=== PATIENT | male | born 1960 | race Caucasian/White ===

== ENCOUNTER 2018-07-01 23:45 | Emergency (ER) | payer MEDICARE, MEDICAID ==
[~2018-07-01] VITALS: Ht 177.8 cm; Wt 116.2 kg
[~2018-07-01 23:45] MED LIST: ALBU18HF2 IH; AMIT50TA3 PO; ASPI-1009 PO; BAC10T PO; CLA10T PO; CLIN300C85 PO; CLOP75TA35 PO; DOCU-274 PO; DULO-31 PO; FENO145T38 PO; FLUC200T PO; FLUT16SP2 NS; IPRA3AMP19 IH; LEVO50TA59 PO; METF500T7 PO; METO10TA3 PO; OMEP-84 PO; PENT400T12 PO; PER10325T PO; PROM25TA14 PO; SIMV20TA5 PO; THEO400T PO; TRAM50TA2 PO; ZAFI20TA13 PO; ZES10T PO
[2018-07-02 00:32] LABS: CLARITY,URINE CLEAR (Clear); COLOR,URINE YELLOW (Yellow); GLUCOSE, URINE NEGATIVE (Neg); KETONES,URINE NEGATIVE (Neg); LEUKOCYTE ESTERASE ,URINE NEGATIVE (Neg); NITRITES, URINE NEGATIVE (Neg); OCCULT BLOOD,URINE NEGATIVE (Neg); PROTEIN,URINE NEGATIVE (Neg); UROBILINOGEN,URINE 0.2 E.U/dL (0.2-1.0)
[2018-07-02 00:33] LABS: UA COLLECTION TYPE NON-SPECIFIED
[2018-07-02 01:17] VITALS: BP 131/77
== END 2018-07-02 01:19 | disposition home or self-care (01) ==
LOC: ER 23:46
DX: M54.5 Low back pain (principal); I25.10 Atherosclerotic heart disease of native coronary artery without angina pectoris; K21.9 Gastro-esophageal reflux disease without esophagitis; J44.9 Chronic obstructive pulmonary disease, unspecified; E11.9 Type 2 diabetes mellitus without complications; E03.9 Hypothyroidism, unspecified; E78.00 Pure hypercholesterolemia, unspecified; G89.29 Other chronic pain; Z88.1 Allergy status to other antibiotic agents; Z88.8 Allergy status to other drugs, medicaments and biological substances; Z79.82 Long term (current) use of aspirin; Z79.84 Long term (current) use of oral hypoglycemic drugs; Z79.2 Long term (current) use of antibiotics; Z79.899 Other long term (current) drug therapy
CPT/HCPCS: 81003; 99283

== ENCOUNTER 2018-10-31 20:26 | Emergency (ER) | payer MEDICARE, MEDICAID ==
[~2018-10-31] VITALS: Ht 177.8 cm; Wt 113.6 kg
[~2018-10-31 20:26] MED LIST changes: +CLIN-96 PO; -CLIN300C85 PO
[2018-10-31 20:28] VITALS: BP 150/90
--- NOTE | 2018-10-31 22:20 | NUR ---
PATIENT NOT IN ROOM
== END 2018-10-31 22:26 | disposition left against medical advice (07) ==
LOC: ER 20:27
DX: J00 Acute nasopharyngitis [common cold] (principal); R05 Cough; R09.89 Other specified symptoms and signs involving the circulatory and respiratory systems; Z53.21 Procedure and treatment not carried out due to patient leaving prior to being seen by health care provider

== ENCOUNTER 2020-01-22 01:32 | Emergency (ER) | payer MEDICARE, MEDICAID ==
[~2020-01-22] VITALS: Ht 177.8 cm; Wt 118.2 kg
[~2020-01-22 01:32] MED LIST changes: -CLIN-96 PO; +CLIN-97 PO; +METF-900 PO; -METF500T7 PO; -PENT400T12 PO; +PENT400T17 PO; +SIMV-42 PO; -SIMV20TA5 PO
[2020-01-22 01:34] VITALS: BP 146/118
[2020-01-22] MEDS ORDERED: METH-360 PO (01:47)
== END 2020-01-22 01:54 | disposition home or self-care (01) ==
LOC: ER 01:34
DX: M54.5 Low back pain (principal); G89.29 Other chronic pain; I25.10 Atherosclerotic heart disease of native coronary artery without angina pectoris; E78.00 Pure hypercholesterolemia, unspecified; J44.9 Chronic obstructive pulmonary disease, unspecified; K21.9 Gastro-esophageal reflux disease without esophagitis; E11.9 Type 2 diabetes mellitus without complications; E03.9 Hypothyroidism, unspecified; Z98.890 Other specified postprocedural states; Z88.1 Allergy status to other antibiotic agents; Z88.0 Allergy status to penicillin; Z91.048 Other nonmedicinal substance allergy status; Z79.82 Long term (current) use of aspirin; Z79.899 Other long term (current) drug therapy
CPT/HCPCS: 99284

== ENCOUNTER 2020-03-22 18:15 | Emergency (ER) | payer MEDICARE, MEDICAID ==
[~2020-03-22] VITALS: Ht 177.8 cm; Wt 118.8 kg
[~2020-03-22 18:15] MED LIST changes: +METH-360 PO
[2020-03-22 19:42] VITALS: BP 135/96
[2020-03-22] MEDS ORDERED: HYDROcodone/acetaminophen 5mg/325mg tablet PO ONE (20:30)
== END 2020-03-22 20:38 | disposition home or self-care (01) ==
LOC: ER 18:15
DX: G89.29 Other chronic pain (principal); Z76.0 Encounter for issue of repeat prescription; I25.10 Atherosclerotic heart disease of native coronary artery without angina pectoris; E78.00 Pure hypercholesterolemia, unspecified; J44.9 Chronic obstructive pulmonary disease, unspecified; K21.9 Gastro-esophageal reflux disease without esophagitis; E11.9 Type 2 diabetes mellitus without complications; E03.9 Hypothyroidism, unspecified; Z90.89 Acquired absence of other organs; Z98.890 Other specified postprocedural states; Z87.11 Personal history of peptic ulcer disease; Z79.899 Other long term (current) drug therapy; Z79.82 Long term (current) use of aspirin; Z88.1 Allergy status to other antibiotic agents; Z88.8 Allergy status to other drugs, medicaments and biological substances
CPT/HCPCS: 99283

== ENCOUNTER → 2020-03-30 | Emergency (ER) | payer MEDICARE, MEDICAID ==
[~2020-03-30] VITALS: Ht 185.4 cm; Wt 120.0 kg
[~2020-03-30] MED LIST changes: +FENTANYL-0.9 % NACL/PF 100 ML IV PRN; +LIDOcaine 2% 10ml TOPICAL JELLY (Urojet) TP ONE; +LORazepam 2 mg/ml vial IV ONE; +LORazepam 2 mg/ml vial ONE; +LevETIRAcetam 500 MG in NORMAL SALINE 100ml IV.SOLN IV ONE; +NORepinephrine 8 MG in NS 250 ML BAG (32 mcg/ml) IV ONE; +NORepinephrine 8mg/ 250ml NS 250 ML IV SCH; +VANCOMYCIN 1,500MG inj. 1,500 MG in normal saline 500ml IV soln 300 ML IV SCH; +VANCOMYCIN LEVEL IV ONE; +etomidate 2mg/ml inj. IV ONE; +etomidate 2mg/ml inj. ONE; +magnesium 2GM in 50ml NS 50 ML IV ONE; +magnesium 4gm in 100ml NS 100 ML IV ONE; +midazolam 100mg in NS 100ml 100 ML IV PRN; +normal saline 1000ml 1,000 ML IV ONE; +normal saline 1000ml 1,000 ML IVB ONE; +piperacillin/tazo 4.5gm/100ml 100 ML IV SCH; +propofol 1000mg/100ml bottle 100 ML IV ONE; +propofol 1000mg/100ml bottle 100 ML IV SCH; +succinylcholine 20mg/ml inj IV ONE
[2020-03-30 19:44] LABS: HEMOGLOBIN 13.4 g/dl (14.0-17.9)
[2020-03-30 19:46] LABS: BASOPHILS # (AUTO) 0.1 X10'3 (0-0.2); BASOPHILS % (AUTO) 0.9 % (0-1); EOSINOPHILS # (AUTO) 0.5 X10'3 (0-0.9); EOSINOPHILS % (AUTO) 3.1 % (0-6); HEMATOCRIT 40.9 % (42.0-52.0); LYMPHOCYTES # (AUTO) 2.3 X10'3 (1.1-4.8); LYMPHOCYTES % (AUTO) 13.2 % (21-51); MEAN CORPUSCULAR HEMOGLOBIN 29.6 PG (27.0-31.0); MEAN CORPUSCULAR HGB CONC 32.9 g/dL (33.0-36.5); MEAN CORPUSCULAR VOLUME 90.1 FL (78-98); MEAN PLATELET VOLUME 7.4 FL (7.4-10.4); MONOCYTES # (AUTO) 0.8 X10'3 (0-0.9); MONOCYTES % (AUTO) 4.6 % (2-12); NEUTROPHILS # (AUTO) 13.5 X10'3 (1.8-7.7); NEUTROPHILS % (AUTO) 78.2 % (42-75); PLATELET COUNT 649 X10'3 (140-440); RED BLOOD COUNT 4.54 X10'6 (4.70-6.10); RED CELL DISTRIBUTION WIDTH 13.9 % (11.5-14.5); WHITE BLOOD COUNT 17.3 X10'3 (4.5-11.0)
[2020-03-30 19:56] LABS: CLARITY,URINE CLEAR (Clear); COLOR,URINE YELLOW (Yellow); GLUCOSE, URINE NEGATIVE (Neg); KETONES,URINE NEGATIVE (Neg); LEUKOCYTE ESTERASE ,URINE NEGATIVE (Neg); NITRITES, URINE NEGATIVE (Neg); OCCULT BLOOD,URINE NEGATIVE (Neg); PH,URINE 6.5 (4.8-8.0); PROTEIN,URINE 100 mg/dl (Neg); UROBILINOGEN,URINE 0.2 E.U/dL (0.2-1.0)
[2020-03-30 19:59] LABS: UA COLLECTION TYPE STRAIGHT CATH
[2020-03-30] MEDS: levetiracetam-NS 1000mg/100ml 100 ML IV SCH (20:00)
[2020-03-30 20:01] LABS: BACTERIA,URINE NONE SEEN /HPF (Neg); RBC,URINE NONE SEEN /HPF (0-2); SQUAMOUS EPITHELIAL CELL,UR FEW /LPF (FEW); WBC,URINE 0-4 /HPF (0-4)
[2020-03-30 20:02] LABS: ALANINE AMINOTRANSFERASE 10 U/L (12-78); ALBUMIN 3.5 G/DL (3.4-5.0); ALBUMIN/GLOBULIN RATIO 0.9 (1.1-1.5); ALKALINE PHOSPHATASE 40 IU/L (46-116); ANION GAP 19 (8-16); ASPARTATE AMINO TRANSFERASE 15 U/L (10-37); BILIRUBIN,TOTAL 0.2 MG/DL (0.1-1.0); BLOOD UREA NITROGEN 7 MG/DL (7-18); BUN/CREATININE RATIO 4.4 (5.4-32.0); CALCIUM 8.2 MG/DL (8.5-10.1); CHLORIDE 100 MMOL/L (99-107); GLUCOSE 235 MG/DL (70-104); POTASSIUM 3.6 MMOL/L (3.5-5.1); SODIUM 136 MMOL/L (135-145); TOTAL PROTEIN 7.3 G/DL (6.4-8.2); eGFR 44 ML/MIN
[2020-03-30 20:08] LABS: MAGNESIUM 0.8 MG/DL (1.5-2.4)
--- NOTE | 2020-03-30 20:12 | NUR ---
LA 9.7, MG 0.7, AWARE. SHE WILL ORDER MG REPLACEMENT AND ADTL 1 LITER NS BOLUS.
--- NOTE | 2020-03-30 22:00 | NUR ---
PATIENT WAS AT CT WHEN SEIZURES STARTED WHEELED PATIENT TO ED BED AT BEDSIDE, ADMINISTERED ATIVAN
--- NOTE | 2020-03-30 22:40 | NUR ---
DR. HERNANDES VERBALIZED THAT WE WILL INTUBATE DUE TO PATIENT NEEDING AIRWAY PROTECTION 10 MG TOTAL ADMINISTERED PRIOR TO DR. HERNANDES DISICION TO INTUBATE
--- NOTE | 2020-03-30 23:00 | NUR ---
SOFT RESTRAINT ORDER IN AND APPLIED TO UPPER EXTREMITIES TO PREVENT PULLING LINES
[2020-03-30 23:30] LABS: ABG BASE EXCESS -6.3 mmol/L (-2.0-2.0); ABG HCO3 20.5 mmol/L (22.0-26.0); ABG OXYGEN SATURATION 96.5 % (94-97); ABG PCO2 (T) 45.6 mmHg (35.0-48.0); ABG PO2 (T) 104.3 mmHg (75.0-100.0); ALLEN'S TEST POSITIVE; FCOHb 0.3 % (0.0-3.9); FMetHb 0.2 % (0.0-1.5); PATIENT TEMPERATURE 36.9; PEEP 5 cm H2O; RESPIRATORY RATE 16 b/min; TOTAL HEMOGLOBIN 13.3 G/dl (14.0-18.0)
[2020-03-31] MEDS: levetiracetam-NS 1000mg/100ml 100 ML IV SCH ×3 (00:35→02:44)
--- NOTE | 2020-03-31 01:00 | NUR ---
RELEASED SOFT RESTRAINTS CSM INTACT REAPPLIED
--- NOTE | 2020-03-31 01:18 | NUR ---
PT GETTING SPINAL TAP NOW BY DR. JONES.
--- NOTE | 2020-03-31 01:46 | NUR ---
UNSUCCESFUL AT SPINAL TAP. [facility] DENIS CONTINUING TO TRY TO TRANSFER PT.
[2020-03-31] MEDS: vancomycin/NS 1 GM ADD-VANTAGE 500 ML IV SCH ×2 (02:45→03:43)
[2020-03-31 02:58] LABS: ALBUMIN 3.1 G/DL (3.4-5.0); ANION GAP 10 (8-16); BLOOD UREA NITROGEN 8 MG/DL (7-18); BUN/CREATININE RATIO 6.1 (5.4-32.0); CALCIUM 7.5 MG/DL (8.5-10.1); CHLORIDE 105 MMOL/L (99-107); CREATININE 1.32 MG/DL (0.60-1.10); GLUCOSE 136 MG/DL (70-104); POTASSIUM 3.5 MMOL/L (3.5-5.1); SODIUM 136 MMOL/L (135-145); TOTAL CARBON DIOXIDE 21.1 MMOL/L (24-32); eGFR 56 ML/MIN
--- NOTE | 2020-03-31 03:00 | NUR ---
SOFT RESTRAINTS RELEASED CSM INTACT REAPPLIED
[2020-03-31] MEDS: LevETIRAcetam 1500 MG in NORMAL SALINE 100ml bag IV SCH ×2 (03:16→03:44)
[2020-03-31 03:36] LABS: URINE AMPHETAMINE SCREEN NEGATIVE (Neg); URINE BARBITUATE SCREEN NEGATIVE (Neg); URINE BENZODIAZEPINES SCREEN NEGATIVE (Neg); URINE CANNABINOID SCREEN NEGATIVE (Neg); URINE COCAINE SCREEN NEGATIVE (Neg); URINE METHADONE SCREEN NEGATIVE (Neg); URINE OPIATE SCREEN NEGATIVE (Neg); URINE PHENCYCLIDINE SCREEN NEGATIVE (Neg)
--- NOTE | 2020-03-31 05:00 | NUR ---
RELEASED SOFT RESTRAINTS CSM INTACT RE APPLIED
[2020-03-31 07:25] LABS: ABG BASE EXCESS -6.4 mmol/L (-2.0-2.0); ABG HCO3 18.5 mmol/L (22.0-26.0); ABG OXYGEN SATURATION 98.4 % (94-97); ALLEN'S TEST POSITIVE; FCOHb 0.6 % (0.0-3.9); FMetHb 0.1 % (0.0-1.5); FO2Hb 97.7 % (94-97); PEEP 5 cm H2O; RESPIRATORY RATE 18 b/min; TOTAL HEMOGLOBIN 13.2 G/dl (14.0-18.0)
--- NOTE | 2020-03-31 08:00 | NUR ---
REPORT CALLED TO TREV SOTOMAYOR AT [facility]. SBAR AND ALL QUESTIONS ANSWERED. TRANSPORT WILL BE HERE AT 0930.
--- NOTE | 2020-03-31 09:47 | NUR ---
FLIGHT CREW AT BEDSIDE PREPARING FOR TRANSPORT TO [facility]. REPORT GIVEN AND ASSISTED WITH PREPARING FOR TRANSFER.
[2020-03-31 11:22] VITALS: BP 143/88
== END | disposition home or self-care (01) ==
LOC: ER 19:14
DX: G40.901 Epilepsy, unspecified, not intractable, with status epilepticus (principal); R57.9 Shock, unspecified; R41.82 Altered mental status, unspecified; E66.9 Obesity, unspecified; I25.10 Atherosclerotic heart disease of native coronary artery without angina pectoris; E78.00 Pure hypercholesterolemia, unspecified; J44.9 Chronic obstructive pulmonary disease, unspecified; K21.9 Gastro-esophageal reflux disease without esophagitis; E11.9 Type 2 diabetes mellitus without complications; E03.9 Hypothyroidism, unspecified; G89.29 Other chronic pain; Z98.890 Other specified postprocedural states; Z87.11 Personal history of peptic ulcer disease; Z86.73 Personal history of transient ischemic attack (TIA), and cerebral infarction without residual deficits; Z79.82 Long term (current) use of aspirin; Z79.899 Other long term (current) drug therapy; Z88.1 Allergy status to other antibiotic agents; Z88.8 Allergy status to other drugs, medicaments and biological substances; Z91.041 Radiographic dye allergy status
CPT/HCPCS: 31500; 36415; 36556; 36600; 62270; 70450; 71045; 80048; 80053; 80305; 81001; 82803; 82948; 83605; 83735; 84145; 85018; 85025; 85610; 87040; 87635; 93005; 96361; 96365; 96366; 96375; 99291; 99292; C9803; J0330; J1953; J2060; J2704; J3475; J7030; 94760; 96367; 96368; 96376; 99285; J2543; J3010; J3370

== ENCOUNTER 2020-05-06 20:29 | Emergency (ER) | payer MEDICARE, MEDICAID ==
[~2020-05-06] VITALS: Ht 177.8 cm; Wt 119.1 kg
[~2020-05-06 20:29] MED LIST changes: -FENTANYL-0.9 % NACL/PF 100 ML IV PRN; -LIDOcaine 2% 10ml TOPICAL JELLY (Urojet) TP ONE; -LORazepam 2 mg/ml vial IV ONE; -LORazepam 2 mg/ml vial ONE; -LevETIRAcetam 500 MG in NORMAL SALINE 100ml IV.SOLN IV ONE; -NORepinephrine 8 MG in NS 250 ML BAG (32 mcg/ml) IV ONE; -NORepinephrine 8mg/ 250ml NS 250 ML IV SCH; -VANCOMYCIN 1,500MG inj. 1,500 MG in normal saline 500ml IV soln 300 ML IV SCH; -VANCOMYCIN LEVEL IV ONE; -etomidate 2mg/ml inj. IV ONE; -etomidate 2mg/ml inj. ONE; -magnesium 2GM in 50ml NS 50 ML IV ONE; -magnesium 4gm in 100ml NS 100 ML IV ONE; -midazolam 100mg in NS 100ml 100 ML IV PRN; -normal saline 1000ml 1,000 ML IV ONE; -normal saline 1000ml 1,000 ML IVB ONE; -piperacillin/tazo 4.5gm/100ml 100 ML IV SCH; -propofol 1000mg/100ml bottle 100 ML IV ONE; -propofol 1000mg/100ml bottle 100 ML IV SCH; -succinylcholine 20mg/ml inj IV ONE
[2020-05-06 21:30] LABS: BASOPHILS # (AUTO) 0.1 X10'3 (0-0.2); BASOPHILS % (AUTO) 1.1 % (0-1); EOSINOPHILS # (AUTO) 0.5 X10'3 (0-0.9); EOSINOPHILS % (AUTO) 4.1 % (0-6); HEMATOCRIT 42.8 % (42.0-52.0); HEMOGLOBIN 14.1 g/dl (14.0-17.9); LYMPHOCYTES # (AUTO) 2.7 X10'3 (1.1-4.8); LYMPHOCYTES % (AUTO) 21.4 % (21-51); MEAN CORPUSCULAR HEMOGLOBIN 29.3 PG (27.0-31.0); MEAN CORPUSCULAR VOLUME 88.7 FL (78-98); MEAN PLATELET VOLUME 7.3 FL (7.4-10.4); MONOCYTES # (AUTO) 0.8 X10'3 (0-0.9); MONOCYTES % (AUTO) 6.2 % (2-12); NEUTROPHILS # (AUTO) 8.5 X10'3 (1.8-7.7); NEUTROPHILS % (AUTO) 67.2 % (42-75); PLATELET COUNT 517 X10'3 (140-440); RED BLOOD COUNT 4.82 X10'6 (4.70-6.10); RED CELL DISTRIBUTION WIDTH 14.1 % (11.5-14.5); WHITE BLOOD COUNT 12.7 X10'3 (4.5-11.0)
--- NOTE | 2020-05-06 21:54 | NUR ---
HE HAS A CYST ON HIS COCCYX THAT HE SAYS HURTS, BUT IT ALWAYS HURTS. DEALING WITH IT SINCE 1971. I ASKED TO LOOK AT IT, BUT HE WON'T LET ME. HE SAID THERE IS NOTHING TO SEE. HE SAID IT IS NOT HOT, NOT NO DIFFERENT THAN BEFORE.
[2020-05-06 22:34] LABS: ALANINE AMINOTRANSFERASE 16 U/L (12-78); ALBUMIN 3.6 G/DL (3.4-5.0); ALBUMIN/GLOBULIN RATIO 0.9 (1.1-1.5); ALKALINE PHOSPHATASE 44 IU/L (46-116); ANION GAP 11 (8-16); ASPARTATE AMINO TRANSFERASE 13 U/L (10-37); BILIRUBIN,TOTAL 0.2 MG/DL (0.1-1.0); BLOOD UREA NITROGEN 7 MG/DL (7-18); BUN/CREATININE RATIO 5.3 (5.4-32.0); CALCIUM 8.6 MG/DL (8.5-10.1); CHLORIDE 100 MMOL/L (99-107); CREATININE 1.32 MG/DL (0.60-1.10); GLUCOSE 147 MG/DL (70-104); POTASSIUM 3.2 MMOL/L (3.5-5.1); SODIUM 137 MMOL/L (135-145); TOTAL CARBON DIOXIDE 26.1 MMOL/L (24-32); TOTAL PROTEIN 7.4 G/DL (6.4-8.2); eGFR 56 ML/MIN
[2020-05-06 22:48] LABS: TROPONIN I < 0.04 NG/ML (0.0-0.05)
[2020-05-06 23:43] LABS: D-DIMER 0.34 MG/L FEU (0-0.50)
--- NOTE | 2020-05-07 00:06 | NUR ---
HE DENIES DRINKING ALCOHOL AND DENIES ANY DRUG USE FOR THE REASONS HIS HR COULD BE ELVATED. hIS LEFT HAND IS TREMULOUS NOW. HE SAID HIS HAND IS TREMULOUS R/T PAIN FROM HIS CHRONIC BACK PAIN.
[2020-05-07 00:12] LABS: CLARITY,URINE CLEAR (Clear); COLOR,URINE YELLOW (Yellow); GLUCOSE, URINE NEGATIVE (Neg); KETONES,URINE NEGATIVE (Neg); LEUKOCYTE ESTERASE ,URINE NEGATIVE (Neg); NITRITES, URINE NEGATIVE (Neg); OCCULT BLOOD,URINE NEGATIVE (Neg); PROTEIN,URINE TRACE mg/dl (Neg); UROBILINOGEN,URINE 0.2 E.U/dL (0.2-1.0)
[2020-05-07 00:17] LABS: BACTERIA,URINE NONE SEEN /HPF (Neg); RBC,URINE NONE SEEN /HPF (0-2); SQUAMOUS EPITHELIAL CELL,UR FEW /LPF (FEW); UA COLLECTION TYPE OTHER; WBC,URINE NONE SEEN /HPF (0-4)
[2020-05-07] MEDS ORDERED: potassium Cl 20 mEq SR tablet PO STA (00:24)
[2020-05-07] MEDS ORDERED: normal saline 1000ml 1,000 ML IV ONE (00:25)
[2020-05-07] MEDS ORDERED: magnesium oxide 400mg tablet PO ONE (00:25)
[2020-05-07] MEDS ORDERED: oxyCODONE/APAP 5-325mg tablet PO ONE (00:25)
[2020-05-07 01:52] VITALS: BP 159/102
== END 2020-05-07 01:55 | disposition home or self-care (01) ==
LOC: ER 20:29
DX: R07.89 Other chest pain (principal); R00.0 Tachycardia, unspecified; R05 Cough; I25.10 Atherosclerotic heart disease of native coronary artery without angina pectoris; E78.00 Pure hypercholesterolemia, unspecified; J44.9 Chronic obstructive pulmonary disease, unspecified; K21.9 Gastro-esophageal reflux disease without esophagitis; E11.9 Type 2 diabetes mellitus without complications; E03.9 Hypothyroidism, unspecified; G89.29 Other chronic pain; Z98.890 Other specified postprocedural states; Z79.2 Long term (current) use of antibiotics; Z88.8 Allergy status to other drugs, medicaments and biological substances; Z79.82 Long term (current) use of aspirin; Z79.899 Other long term (current) drug therapy
CPT/HCPCS: 36415; 71045; 80053; 81001; 83605; 83880; 84145; 84443; 84484; 85025; 85379; 87040; 87635; 93005; 96360; 99285; C9803; J7030; 81003

== ENCOUNTER 2021-09-03 18:35 | Emergency (ER) | payer MEDICARE, MEDICAID ==
[~2021-09-03] VITALS: Ht 177.8 cm; Wt 115.9 kg
[~2021-09-03 18:35] MED LIST changes: -AMIT50TA3 PO; +ATOR20TA PO; -CLIN-97 PO; +CLOP75TA34 PO; -CLOP75TA35 PO; -FLUC200T PO; +HYDR-3927 PO; +LEVA0.6319 NEB; +LEVE10002 PO; +LISI20TA28 PO; -METH-360 PO; -METO10TA3 PO; -PROM25TA14 PO; -SIMV-42 PO; -TRAM50TA2 PO; -ZES10T PO
[2021-09-03 18:46] VITALS: BP 129/84
== END 2021-09-03 20:13 | disposition left against medical advice (07) ==
LOC: ER 18:37
DX: K13.79 Other lesions of oral mucosa (principal); K08.89 Other specified disorders of teeth and supporting structures; Z53.21 Procedure and treatment not carried out due to patient leaving prior to being seen by health care provider

== ENCOUNTER 2021-09-28 21:29 | Emergency (ER) | payer MEDICARE, MEDICAID ==
[~2021-09-28] VITALS: Ht 177.8 cm; Wt 114.8 kg
[2021-09-28] MEDS ORDERED: MINE105O TOP (23:06)
[2021-09-29 00:37] VITALS: BP 134/84
== END 2021-09-29 00:39 | disposition home or self-care (01) ==
LOC: ER 21:31
DX: L85.3 Xerosis cutis (principal); L30.9 Dermatitis, unspecified; G89.29 Other chronic pain; E03.9 Hypothyroidism, unspecified; E11.9 Type 2 diabetes mellitus without complications; K21.9 Gastro-esophageal reflux disease without esophagitis; J44.9 Chronic obstructive pulmonary disease, unspecified; I10 Essential (primary) hypertension; E78.00 Pure hypercholesterolemia, unspecified; I25.10 Atherosclerotic heart disease of native coronary artery without angina pectoris; Z98.890 Other specified postprocedural states; Z87.11 Personal history of peptic ulcer disease; Z88.1 Allergy status to other antibiotic agents; Z88.8 Allergy status to other drugs, medicaments and biological substances; Z91.041 Radiographic dye allergy status; Z79.82 Long term (current) use of aspirin; Z79.899 Other long term (current) drug therapy
CPT/HCPCS: 99282

== ENCOUNTER 2021-10-20 03:25 | Emergency (ER) | payer MEDICARE, MEDICAID ==
[~2021-10-20] VITALS: Ht 177.8 cm; Wt 115.5 kg
[~2021-10-20 03:25] MED LIST changes: +MINE105O TOP
[2021-10-20 03:36] VITALS: BP 102/60
== END 2021-10-20 05:08 | disposition home or self-care (01) ==
LOC: ER 03:25
DX: M79.89 Other specified soft tissue disorders (principal); R20.0 Anesthesia of skin; I25.10 Atherosclerotic heart disease of native coronary artery without angina pectoris; E78.00 Pure hypercholesterolemia, unspecified; I10 Essential (primary) hypertension; J44.9 Chronic obstructive pulmonary disease, unspecified; K21.9 Gastro-esophageal reflux disease without esophagitis; E11.9 Type 2 diabetes mellitus without complications; E03.9 Hypothyroidism, unspecified; G89.29 Other chronic pain; Z87.11 Personal history of peptic ulcer disease; Z98.890 Other specified postprocedural states; Z88.1 Allergy status to other antibiotic agents; Z88.8 Allergy status to other drugs, medicaments and biological substances; Z79.82 Long term (current) use of aspirin; Z79.899 Other long term (current) drug therapy
CPT/HCPCS: 73110; 99283; 99284

== ENCOUNTER 2021-12-16 21:42 | Emergency (ER) | payer MEDICARE, MEDICAID ==
[~2021-12-16] VITALS: Ht 177.8 cm; Wt 112.5 kg
[2021-12-16 21:46] VITALS: BP 175/75
== END 2021-12-16 22:47 | disposition home or self-care (01) ==
LOC: ER 21:43
DX: R60.0 Localized edema (principal); I25.10 Atherosclerotic heart disease of native coronary artery without angina pectoris; E78.00 Pure hypercholesterolemia, unspecified; I10 Essential (primary) hypertension; J44.9 Chronic obstructive pulmonary disease, unspecified; K21.9 Gastro-esophageal reflux disease without esophagitis; E11.9 Type 2 diabetes mellitus without complications; E03.9 Hypothyroidism, unspecified; G89.29 Other chronic pain; Z87.11 Personal history of peptic ulcer disease; Z98.890 Other specified postprocedural states; Z88.1 Allergy status to other antibiotic agents; Z88.8 Allergy status to other drugs, medicaments and biological substances; Z79.82 Long term (current) use of aspirin; Z79.899 Other long term (current) drug therapy
CPT/HCPCS: 99282

== ENCOUNTER 2022-03-07 16:18 | Emergency (ER) | payer MEDICARE, MEDICAID ==
[~2022-03-07] VITALS: Ht 177.8 cm; Wt 118.2 kg
[2022-03-07 16:59] VITALS: BP 100/55
[2022-03-07 17:47] LABS: EOSINOPHILS # (AUTO) 0.4 X10'3 (0-0.9)
[2022-03-07 17:49] LABS: BASOPHILS # (AUTO) 0.1 X10'3 (0-0.2); BASOPHILS % (AUTO) 1.1 % (0-1); HEMATOCRIT 40.1 % (42.0-52.0); HEMOGLOBIN 13.5 g/dl (14.0-17.9); LYMPHOCYTES # (AUTO) 2.7 X10'3 (1.1-4.8); LYMPHOCYTES % (AUTO) 19.6 % (21-51); MEAN CORPUSCULAR HEMOGLOBIN 28.4 PG (27.0-31.0); MEAN CORPUSCULAR HGB CONC 33.7 g/dL (33.0-36.5); MEAN CORPUSCULAR VOLUME 84.2 FL (78-98); MEAN PLATELET VOLUME 6.8 FL (7.4-10.4); MONOCYTES # (AUTO) 0.9 X10'3 (0-0.9); MONOCYTES % (AUTO) 6.4 % (2-12); NEUTROPHILS # (AUTO) 9.4 X10'3 (1.8-7.7); NEUTROPHILS % (AUTO) 69.9 % (42-75); PLATELET COUNT 672 X10'3 (140-440); RED BLOOD COUNT 4.76 X10'6 (4.70-6.10); RED CELL DISTRIBUTION WIDTH 15.2 % (11.5-14.5); WHITE BLOOD COUNT 13.5 X10'3 (4.5-11.0)
[2022-03-07 17:57] LABS: ALANINE AMINOTRANSFERASE 18 U/L (12-78); ALBUMIN 3.6 G/DL (3.4-5.0); ALBUMIN/GLOBULIN RATIO 0.9 (1.1-1.5); ALKALINE PHOSPHATASE 65 IU/L (46-116); ANION GAP 9 (8-16); ASPARTATE AMINO TRANSFERASE 12 U/L (10-37); BILIRUBIN,TOTAL 0.2 MG/DL (0.1-1.0); BLOOD UREA NITROGEN 14 MG/DL (7-18); BUN/CREATININE RATIO 12.4 (5.4-32.0); CALCIUM 9.6 MG/DL (8.5-10.1); CHLORIDE 100 MMOL/L (99-107); CREATININE 1.13 MG/DL (0.60-1.10); GLUCOSE 123 MG/DL (70-104); POTASSIUM 4.6 MMOL/L (3.5-5.1); SODIUM 133 MMOL/L (135-145); TOTAL PROTEIN 7.5 G/DL (6.4-8.2); eGFR 66 ML/MIN
[2022-03-10] MEDS ORDERED: BUDE10.27 INH (17:58)
== END 2022-03-08 01:37 | disposition left against medical advice (07) ==
LOC: ER 16:19
DX: R05.9 Cough, unspecified (principal); R07.89 Other chest pain; Z53.21 Procedure and treatment not carried out due to patient leaving prior to being seen by health care provider
CPT/HCPCS: 71046; 80053; 83605; 83880; 85025; 87040

== ENCOUNTER 2022-11-01 01:05 | Emergency (ER) | payer MEDICARE, MEDICAID ==
[~2022-11-01] VITALS: Ht 177.8 cm; Wt 96.2 kg
[~2022-11-01 01:05] MED LIST changes: +BUDE10.27 INH
[2022-11-01 01:34] LABS: CLARITY,URINE CLEAR (Clear); COLOR,URINE YELLOW (Yellow); GLUCOSE, URINE NEGATIVE (Neg); KETONES,URINE NEGATIVE (Neg); LEUKOCYTE ESTERASE ,URINE NEGATIVE (Neg); NITRITES, URINE NEGATIVE (Neg); OCCULT BLOOD,URINE NEGATIVE (Neg); PROTEIN,URINE 30 mg/dl (Neg); UROBILINOGEN,URINE 0.2 E.U/dL (0.2-1.0)
[2022-11-01 01:34] LABS: BASOPHILS # (AUTO) 0.1 X10'3 (0-0.2); BASOPHILS % (AUTO) 0.7 % (0-1); EOSINOPHILS # (AUTO) 0.4 X10'3 (0-0.9); EOSINOPHILS % (AUTO) 2.5 % (0-6); HEMATOCRIT 36.5 % (42.0-52.0); HEMOGLOBIN 12.3 g/dl (14.0-17.9); LYMPHOCYTES # (AUTO) 2.6 X10'3 (1.1-4.8); MEAN CORPUSCULAR HEMOGLOBIN 28.6 PG (27.0-31.0); MEAN CORPUSCULAR HGB CONC 33.7 g/dL (33.0-36.5); MEAN CORPUSCULAR VOLUME 85.1 FL (78-98); MEAN PLATELET VOLUME 6.7 FL (7.4-10.4); MONOCYTES # (AUTO) 1.1 X10'3 (0-0.9); MONOCYTES % (AUTO) 6.4 % (2-12); NEUTROPHILS # (AUTO) 13.1 X10'3 (1.8-7.7); NEUTROPHILS % (AUTO) 75.4 % (42-75); PLATELET COUNT 561 X10'3 (140-440); RED BLOOD COUNT 4.28 X10'6 (4.70-6.10); RED CELL DISTRIBUTION WIDTH 14.7 % (11.5-14.5); WHITE BLOOD COUNT 17.4 X10'3 (4.5-11.0)
[2022-11-01 01:40] LABS: UA COLLECTION TYPE CLN CATCH MIDSTREAM
[2022-11-01 01:42] LABS: BACTERIA,URINE FEW /HPF (Neg); RBC,URINE 0-2 /HPF (0-2); SQUAMOUS EPITHELIAL CELL,UR FEW /LPF (FEW); WBC,URINE 0-4 /HPF (0-4)
[2022-11-01 01:49] LABS: ALANINE AMINOTRANSFERASE 12 U/L (12-78); ALBUMIN 3.7 G/DL (3.4-5.0); ALKALINE PHOSPHATASE 74 IU/L (46-116); ANION GAP 8 (8-16); ASPARTATE AMINO TRANSFERASE 9 U/L (10-37); BILIRUBIN,TOTAL 0.3 MG/DL (0.1-1.0); BLOOD UREA NITROGEN 12 MG/DL (7-18); BUN/CREATININE RATIO 10.3 (5.4-32.0); CALCIUM 9.2 MG/DL (8.5-10.1); CHLORIDE 96 MMOL/L (99-107); CREATININE 1.17 MG/DL (0.60-1.10); GLUCOSE 131 MG/DL (70-104); LIPASE 90 U/L (73-393); POTASSIUM 4.4 MMOL/L (3.5-5.1); SODIUM 131 MMOL/L (135-145); TOTAL CARBON DIOXIDE 27.2 MMOL/L (24-32); TOTAL PROTEIN 7.5 G/DL (6.4-8.2); eGFR 63 ML/MIN
[2022-11-01] MEDS: morphine 4 MG/ML inj SYRINge IV ONE (02:44)
[2022-11-01] MEDS: ondansetron/PF 4mg/2ml inj IV ONE (02:44)
[2022-11-01] MEDS: clindamycin 300mg/D5W 50mL 50 ML IV ONE (02:54)
[2022-11-01] MEDS ORDERED: HYDR-3965 PO (05:28)
[2022-11-01] MEDS ORDERED: METR-159 PO (05:28)
[2022-11-01] MEDS ORDERED: ONDA8TAB13 PO (05:28)
[2022-11-01] MEDS ORDERED: CLIN150C8 PO (05:28)
[2022-11-01 05:33] VITALS: BP 136/72
[2022-11-01] MEDS: metroNIDAZOLE 500mg tablet PO ONE (05:48)
== END 2022-11-01 05:59 | disposition home or self-care (01) ==
LOC: ER 01:06
DX: K52.9 Noninfective gastroenteritis and colitis, unspecified (principal); I11.9 Hypertensive heart disease without heart failure; E78.00 Pure hypercholesterolemia, unspecified; K21.9 Gastro-esophageal reflux disease without esophagitis; E11.9 Type 2 diabetes mellitus without complications; E03.9 Hypothyroidism, unspecified; G89.29 Other chronic pain; M54.9 Dorsalgia, unspecified; Z88.1 Allergy status to other antibiotic agents; Z88.2 Allergy status to sulfonamides; Z88.6 Allergy status to analgesic agent; Z88.8 Allergy status to other drugs, medicaments and biological substances; Z79.899 Other long term (current) drug therapy; Z79.1 Long term (current) use of non-steroidal anti-inflammatories (NSAID); Z79.2 Long term (current) use of antibiotics
CPT/HCPCS: 36415; 74176; 80053; 81001; 83605; 83690; 84145; 85025; 87040; 96365; 96375; 99285; J2270; J2405; J3490

== ENCOUNTER 2022-11-13 21:42 | Emergency (ER) | payer MEDICARE, MEDICAID ==
[~2022-11-13] VITALS: Ht 177.8 cm; Wt 109.1 kg
[~2022-11-13 21:42] MED LIST changes: +CLIN150C8 PO; +HYDR-3965 PO; +ONDA8TAB13 PO
[2022-11-14] MEDS ORDERED: metroNIDAZOLE 500mg tablet PO ONE (00:50)
[2022-11-14] MEDS ORDERED: ondansetron 4mg rapidly disintigrating tab PO ONE (00:50)
[2022-11-14 01:17] LABS: BASOPHILS # (AUTO) 0.1 X10'3 (0-0.2); BASOPHILS % (AUTO) 1.1 % (0-1); EOSINOPHILS # (AUTO) 0.6 X10'3 (0-0.9); EOSINOPHILS % (AUTO) 4.5 % (0-6); HEMOGLOBIN 12.5 g/dl (14.0-17.9); LYMPHOCYTES # (AUTO) 2.3 X10'3 (1.1-4.8); MEAN CORPUSCULAR HEMOGLOBIN 29.1 PG (27.0-31.0); MEAN CORPUSCULAR HGB CONC 34.6 g/dL (33.0-36.5); MEAN CORPUSCULAR VOLUME 84.1 FL (78-98); MEAN PLATELET VOLUME 6.5 FL (7.4-10.4); MONOCYTES # (AUTO) 0.9 X10'3 (0-0.9); MONOCYTES % (AUTO) 6.9 % (2-12); NEUTROPHILS # (AUTO) 9.3 X10'3 (1.8-7.7); NEUTROPHILS % (AUTO) 70.5 % (42-75); PLATELET COUNT 599 X10'3 (140-440); RED BLOOD COUNT 4.28 X10'6 (4.70-6.10); WHITE BLOOD COUNT 13.2 X10'3 (4.5-11.0)
[2022-11-14 01:28] LABS: ALANINE AMINOTRANSFERASE 20 U/L (12-78); ALBUMIN 3.7 G/DL (3.4-5.0); ALBUMIN/GLOBULIN RATIO 1.1 (1.1-1.5); ALKALINE PHOSPHATASE 58 IU/L (46-116); ANION GAP 6 (8-16); ASPARTATE AMINO TRANSFERASE 21 U/L (10-37); BILIRUBIN,TOTAL 0.2 MG/DL (0.1-1.0); BLOOD UREA NITROGEN 11 MG/DL (7-18); BUN/CREATININE RATIO 9.9 (5.4-32.0); CALCIUM 9.1 MG/DL (8.5-10.1); CHLORIDE 97 MMOL/L (99-107); CREATININE 1.11 MG/DL (0.60-1.10); GLUCOSE 112 MG/DL (70-104); LIPASE 157 U/L (73-393); MAGNESIUM 1.7 MG/DL (1.5-2.4); POTASSIUM 4.8 MMOL/L (3.5-5.1); SODIUM 128 MMOL/L (135-145); TOTAL CARBON DIOXIDE 25.4 MMOL/L (24-32); TOTAL PROTEIN 7.2 G/DL (6.4-8.2); eGFR 67 ML/MIN
[2022-11-14] MEDS ORDERED: METR-159 PO (01:58)
[2022-11-14] MEDS ORDERED: CLIN150C8 PO (01:58)
[2022-11-14] MEDS ORDERED: clindamycin 150mg capsule PO ONE (02:00)
[2022-11-14 02:18] VITALS: BP 135/78
== END 2022-11-14 02:19 | disposition home or self-care (01) ==
LOC: ER 21:43
DX: K52.89 Other specified noninfective gastroenteritis and colitis (principal)
CPT/HCPCS: 36415; 80053; 83605; 83690; 83735; 85025; 87040; 99284

== ENCOUNTER 2023-05-21 13:23 | Emergency (ER) | payer MEDICARE, MEDICAID ==
[~2023-05-21] VITALS: Ht 180.3 cm; Wt 63.6 kg
[~2023-05-21 13:23] MED LIST changes: +CLIN-214 PO; -CLIN150C8 PO; -HYDR-3965 PO
[2023-05-21 13:39] VITALS: BP 118/72; PULSE 79; RESP 16; TEMP 98; O2SAT 99
[2023-05-22] MEDS ORDERED: PRED20TA PO (05:22)
[2023-05-22] MEDS ORDERED: HYDR-3965 PO (05:22)
== END 2023-05-21 16:00 | disposition left against medical advice (07) ==
LOC: ER 13:23
DX: R10.9 Unspecified abdominal pain (principal); Z53.21 Procedure and treatment not carried out due to patient leaving prior to being seen by health care provider
CPT/HCPCS: 99281

== ENCOUNTER 2023-05-22 01:14 | Emergency (ER) | payer MEDICARE, MEDICAID ==
[~2023-05-22] VITALS: Ht 177.8 cm; Wt 109.1 kg
[2023-05-22 01:40] VITALS: TEMP 97.7
[2023-05-22 02:22] LABS: BASOPHILS # (AUTO) 0.1 X10'3 (0-0.2); BASOPHILS % (AUTO) 1.3 % (0-1); EOSINOPHILS # (AUTO) 0.6 X10'3 (0-0.9); EOSINOPHILS % (AUTO) 6.3 % (0-6); HEMATOCRIT 35.8 % (42.0-52.0); HEMOGLOBIN 11.7 g/dl (14.0-17.9); LYMPHOCYTES # (AUTO) 1.8 X10'3 (1.1-4.8); LYMPHOCYTES % (AUTO) 18.8 % (21-51); MEAN CORPUSCULAR HEMOGLOBIN 28.2 PG (27.0-31.0); MEAN CORPUSCULAR HGB CONC 32.6 g/dL (33.0-36.5); MEAN CORPUSCULAR VOLUME 86.5 FL (78-98); MEAN PLATELET VOLUME 6.8 FL (7.4-10.4); MONOCYTES # (AUTO) 0.8 X10'3 (0-0.9); MONOCYTES % (AUTO) 8.3 % (2-12); NEUTROPHILS # (AUTO) 6.4 X10'3 (1.8-7.7); NEUTROPHILS % (AUTO) 65.3 % (42-75); PLATELET COUNT 401 X10'3 (140-440); RED BLOOD COUNT 4.14 X10'6 (4.70-6.10); RED CELL DISTRIBUTION WIDTH 16.4 % (11.5-14.5); WHITE BLOOD COUNT 9.8 X10'3 (4.5-11.0)
[2023-05-22] MEDS ORDERED: ondansetron 4mg rapidly disintigrating tab PO ONE (02:30)
[2023-05-22] MEDS ORDERED: HYDROcodone/acetaminophen 10/325mg tab PO ONE (02:30)
[2023-05-22] MEDS ORDERED: proCHLORperazine 10mg tablet PO ONE (02:30)
[2023-05-22 02:31] LABS: ALANINE AMINOTRANSFERASE 17 U/L (12-78); ALBUMIN 3.3 G/DL (3.4-5.0); ALKALINE PHOSPHATASE 51 IU/L (46-116); ANION GAP 9 (8-16); ASPARTATE AMINO TRANSFERASE 10 U/L (10-37); BILIRUBIN,TOTAL 0.2 MG/DL (0.1-1.0); BLOOD UREA NITROGEN 10 MG/DL (7-18); BUN/CREATININE RATIO 9.2 (10.0-20.0); CALCIUM 9.1 MG/DL (8.5-10.1); CHLORIDE 101 MMOL/L (99-107); CREATININE 1.09 MG/DL (0.60-1.10); GLUCOSE 129 MG/DL (70-104); POTASSIUM 4.5 MMOL/L (3.5-5.1); SODIUM 133 MMOL/L (135-145); TOTAL CARBON DIOXIDE 22.8 MMOL/L (24-32); TOTAL PROTEIN 6.7 G/DL (6.4-8.2); eCRCL 73 ML/MIN; eGFR 69 ML/MIN
[2023-05-22 02:38] LABS: LIPASE 77 U/L (73-393); PRO BRAIN NATRIURETIC PEPTIDE 41 PG/ML (0-125)
[2023-05-22 03:47] LABS: BILIRUBIN,URINE NEGATIVE (Neg); COLOR,URINE YELLOW (Yellow); GLUCOSE, URINE NEGATIVE (Neg); KETONES,URINE NEGATIVE (Neg); LEUKOCYTE ESTERASE ,URINE NEGATIVE (Neg); NITRITES, URINE NEGATIVE (Neg); OCCULT BLOOD,URINE NEGATIVE (Neg); PROTEIN,URINE 30 mg/dl (Neg); UROBILINOGEN,URINE 0.2 E.U/dL (0.2-1.0)
[2023-05-22 03:55] LABS: UA COLLECTION TYPE CLN CATCH MIDSTREAM
[2023-05-22 03:57] LABS: BACTERIA,URINE FEW /HPF (Neg); CLARITY,URINE SLIGHTLY CLOUDY (Clear); RBC,URINE 0-2 /HPF (0-2); SQUAMOUS EPITHELIAL CELL,UR FEW /LPF (FEW); WBC,URINE 0-4 /HPF (0-4)
[2023-05-22 05:22] VITALS: BP 95/47; PULSE 66; O2SAT 94
[2023-05-22] MEDS ORDERED: PRED20TA PO (05:22)
[2023-05-22] MEDS ORDERED: HYDR-3965 PO (05:22)
[2023-05-22 05:24] VITALS: RESP 17
== END 2023-05-22 05:43 | disposition home or self-care (01) ==
LOC: ER 01:15
DX: R10.9 Unspecified abdominal pain (principal); I11.0 Hypertensive heart disease with heart failure; E78.00 Pure hypercholesterolemia, unspecified; K21.9 Gastro-esophageal reflux disease without esophagitis; E07.9 Disorder of thyroid, unspecified; G89.29 Other chronic pain; M54.9 Dorsalgia, unspecified; Z88.1 Allergy status to other antibiotic agents; Z88.5 Allergy status to narcotic agent; Z79.899 Other long term (current) drug therapy; Z88.6 Allergy status to analgesic agent
CPT/HCPCS: 36415; 71045; 74176; 80053; 81001; 83605; 83690; 83880; 84145; 84484; 85025; 93005; 99285; Q0164

== ENCOUNTER 2023-11-15 11:26 | Emergency (ER) | payer MEDICARE, MEDICAID ==
[~2023-11-15] VITALS: Ht 177.8 cm; Wt 104.4 kg
[~2023-11-15 11:26] MED LIST changes: +ZAFI20TA PO; -ZAFI20TA13 PO
[2023-11-15 13:18] LABS: BASOPHILS # (AUTO) 0.1 X10'3 (0-0.2); BASOPHILS % (AUTO) 1.4 % (0-1); EOSINOPHILS # (AUTO) 0.4 X10'3 (0-0.9); EOSINOPHILS % (AUTO) 4.8 % (0-6); HEMATOCRIT 34.1 % (42.0-52.0); HEMOGLOBIN 11.3 g/dl (14.0-17.9); LYMPHOCYTES # (AUTO) 1.6 X10'3 (1.1-4.8); LYMPHOCYTES % (AUTO) 16.7 % (21-51); MEAN CORPUSCULAR HEMOGLOBIN 28.5 PG (27.0-31.0); MEAN CORPUSCULAR HGB CONC 33.2 g/dL (33.0-36.5); MEAN CORPUSCULAR VOLUME 85.7 FL (78-98); MEAN PLATELET VOLUME 6.5 FL (7.4-10.4); MONOCYTES # (AUTO) 0.8 X10'3 (0-0.9); MONOCYTES % (AUTO) 8.9 % (2-12); NEUTROPHILS # (AUTO) 6.4 X10'3 (1.8-7.7); NEUTROPHILS % (AUTO) 68.2 % (42-75); PLATELET COUNT 442 X10'3 (140-440); RED BLOOD COUNT 3.98 X10'6 (4.70-6.10); RED CELL DISTRIBUTION WIDTH 14.9 % (11.5-14.5); WHITE BLOOD COUNT 9.4 X10'3 (4.5-11.0)
[2023-11-15 13:50] LABS: ALANINE AMINOTRANSFERASE 12 U/L (12-78); ALBUMIN 2.9 G/DL (3.4-5.0); ALBUMIN/GLOBULIN RATIO 0.8 (1.1-1.5); ALKALINE PHOSPHATASE 44 IU/L (46-116); ANION GAP 12 (8-16); ASPARTATE AMINO TRANSFERASE 10 U/L (10-37); BILIRUBIN,TOTAL 0.3 MG/DL (0.1-1.0); BLOOD UREA NITROGEN 17 MG/DL (7-18); BUN/CREATININE RATIO 19.8 (10.0-20.0); CALCIUM 9.2 MG/DL (8.5-10.1); CHLORIDE 99 MMOL/L (99-107); CREATININE 0.86 MG/DL (0.60-1.10); GLUCOSE 113 MG/DL (70-104); POTASSIUM 4.9 MMOL/L (3.5-5.1); SODIUM 134 MMOL/L (135-145); TOTAL CARBON DIOXIDE 22.8 MMOL/L (24-32); TOTAL PROTEIN 6.7 G/DL (6.4-8.2); eCRCL 91 ML/MIN; eGFR 90 ML/MIN
[2023-11-15] MEDS ORDERED: SULF1TAB49 PO (15:16)
[2023-11-15 15:29] VITALS: BP 127/63; PULSE 64; RESP 16; TEMP 98.4; O2SAT 97
== END 2023-11-15 15:31 | disposition home or self-care (01) ==
LOC: ER 11:27
DX: L03.031 Cellulitis of right toe (principal); E78.00 Pure hypercholesterolemia, unspecified; I10 Essential (primary) hypertension; J44.9 Chronic obstructive pulmonary disease, unspecified; K21.9 Gastro-esophageal reflux disease without esophagitis; E11.9 Type 2 diabetes mellitus without complications; E03.9 Hypothyroidism, unspecified; Z88.1 Allergy status to other antibiotic agents; Z91.041 Radiographic dye allergy status; Z88.8 Allergy status to other drugs, medicaments and biological substances; Z79.899 Other long term (current) drug therapy; Z79.82 Long term (current) use of aspirin; Z79.1 Long term (current) use of non-steroidal anti-inflammatories (NSAID)
CPT/HCPCS: 36415; 73660; 80053; 85025; 99284

== ENCOUNTER 2023-11-16 21:49 | Emergency (ER) | payer MEDICARE, MEDICAID ==
[~2023-11-16] VITALS: Ht 177.8 cm; Wt 104.5 kg
[~2023-11-16 21:49] MED LIST changes: +SULF1TAB49 PO
[2023-11-16 21:54] VITALS: TEMP 98.2
[2023-11-16 23:43] VITALS: BP 118/55; PULSE 69; RESP 20; O2SAT 99
== END 2023-11-16 23:44 | disposition home or self-care (01) ==
LOC: ER 21:50
DX: Z48.00 Encounter for change or removal of nonsurgical wound dressing (principal); R22.40 Localized swelling, mass and lump, unspecified lower limb; I25.10 Atherosclerotic heart disease of native coronary artery without angina pectoris; E78.00 Pure hypercholesterolemia, unspecified; I10 Essential (primary) hypertension; J44.9 Chronic obstructive pulmonary disease, unspecified; E11.9 Type 2 diabetes mellitus without complications; E03.9 Hypothyroidism, unspecified; G89.29 Other chronic pain; F17.200 Nicotine dependence, unspecified, uncomplicated; Z98.890 Other specified postprocedural states; Z91.041 Radiographic dye allergy status; Z88.1 Allergy status to other antibiotic agents; Z88.8 Allergy status to other drugs, medicaments and biological substances; Z79.899 Other long term (current) drug therapy; Z79.2 Long term (current) use of antibiotics
CPT/HCPCS: 99281

== ENCOUNTER 2024-02-05 16:40 | Emergency (ER) | payer MEDICARE, MEDICAID ==
[~2024-02-05 16:40] MED LIST changes: -SULF1TAB49 PO
[2024-02-06] MEDS ORDERED: TRIA15CR61 TOP (15:24)
== END 2024-02-05 17:49 | disposition home or self-care (01) ==
LOC: ER 16:40
DX: R21 Rash and other nonspecific skin eruption (principal); Z53.21 Procedure and treatment not carried out due to patient leaving prior to being seen by health care provider

== ENCOUNTER 2024-02-06 13:33 | Emergency (ER) | payer MEDICARE, MEDICAID ==
[~2024-02-06] VITALS: Ht 177.8 cm; Wt 88.5 kg
[2024-02-06 13:46] VITALS: BP 119/55; PULSE 85; RESP 16; TEMP 98.4; O2SAT 97
[2024-02-06] MEDS: famotidine 20mg tablet PO ONE (15:16)
[2024-02-06] MEDS: diphenhydrAMINE 50 mg/ml inj IM ONE (15:17)
[2024-02-06] MEDS: dexamethasone sod phosphate 10mg/ml inj IM STA (15:17)
[2024-02-06] MEDS ORDERED: TRIA15CR61 TOP (15:24)
== END 2024-02-06 15:51 | disposition home or self-care (01) ==
LOC: ER 13:34
DX: L23.89 Allergic contact dermatitis due to other agents (principal); I25.10 Atherosclerotic heart disease of native coronary artery without angina pectoris; E78.00 Pure hypercholesterolemia, unspecified; I10 Essential (primary) hypertension; J44.9 Chronic obstructive pulmonary disease, unspecified; K21.9 Gastro-esophageal reflux disease without esophagitis; E11.9 Type 2 diabetes mellitus without complications; E03.9 Hypothyroidism, unspecified; G89.29 Other chronic pain; M54.9 Dorsalgia, unspecified; Z72.89 Other problems related to lifestyle; Z88.1 Allergy status to other antibiotic agents; Z88.8 Allergy status to other drugs, medicaments and biological substances; Z91.041 Radiographic dye allergy status; Z79.82 Long term (current) use of aspirin; Z79.899 Other long term (current) drug therapy
CPT/HCPCS: 96372; 99284; J1100; J1200

== ENCOUNTER 2024-09-08 21:14 | Emergency (ER) | payer MEDICARE, MEDICAID ==
[~2024-09-08] VITALS: Ht 177.8 cm; Wt 109.1 kg
[~2024-09-08 21:14] MED LIST changes: +ACET-1025 PO; -BAC10T PO; -BUDE10.27 INH; -CLA10T PO; -CLIN-214 PO; -FENO145T38 PO; -FLUT16SP2 NS; +FLUT1DIS20 INH; -HYDR-3927 PO; -LEVA0.6319 NEB; -LEVE10002 PO; +LEVE500T12 PO; +LEVO750T68 PO; +MAGN400T39 PO; +METF-436 PO; -METF-900 PO; -MINE105O TOP; +MONT-40 PO; -OMEP-84 PO; -ONDA8TAB13 PO; +PANT-47 PO; -PENT400T17 PO; -THEO400T PO; +TRIH2TAB3 PO; -ZAFI20TA PO
[2024-09-08 21:16] VITALS: BP 150/86; PULSE 94; RESP 18; TEMP 98.5; O2SAT 99
== END 2024-09-09 02:10 | disposition left against medical advice (07) ==
LOC: ER 21:15
DX: M25.511 Pain in right shoulder (principal); Z53.21 Procedure and treatment not carried out due to patient leaving prior to being seen by health care provider; Z88.1 Allergy status to other antibiotic agents; Z88.8 Allergy status to other drugs, medicaments and biological substances
CPT/HCPCS: 73030

== ENCOUNTER 2024-09-10 16:30 | Emergency (ER) | payer MEDICARE, MEDICAID ==
[~2024-09-10] VITALS: Ht 177.8 cm; Wt 109.1 kg
[2024-09-10] MEDS: ketorolac trometh 15mg/ml vial 15 MG/ML ML IM ONE (17:58)
[2024-09-10 18:02] VITALS: BP 130/76; PULSE 68; RESP 16; TEMP 97.9; O2SAT 99
== END 2024-09-10 18:03 | disposition home or self-care (01) ==
LOC: ER 16:31
DX: M25.511 Pain in right shoulder (principal); I25.10 Atherosclerotic heart disease of native coronary artery without angina pectoris; E78.00 Pure hypercholesterolemia, unspecified; E11.9 Type 2 diabetes mellitus without complications; E03.9 Hypothyroidism, unspecified; J44.9 Chronic obstructive pulmonary disease, unspecified; K21.9 Gastro-esophageal reflux disease without esophagitis; I10 Essential (primary) hypertension; G89.29 Other chronic pain; M54.9 Dorsalgia, unspecified; Z98.890 Other specified postprocedural states; Z88.1 Allergy status to other antibiotic agents; Z88.8 Allergy status to other drugs, medicaments and biological substances; Z79.82 Long term (current) use of aspirin; Z79.899 Other long term (current) drug therapy
CPT/HCPCS: 96372; 99283; J1885

== ENCOUNTER 2025-03-11 14:28 | Outpatient (CLI) | payer MEDICARE, MEDICAID ==
--- NOTE | 2025-03-11 15:30 | RADIOLOGY REPORT ---
EXAM: DI LUMBAR SPINE LIMITED HISTORY: CHRONIC LUMBAR SPINE PAIN COMPARISON: CT scan of the abdomen and pelvis dated 05/22/2023. TECHNIQUE: AP and lateral views of the lumbar spine and spot lateral of the lumbosacral junction were performed. FINDINGS: No fractures are identified about the lumbar spine. There is moderate to severe degenerative disc di sease, greater in the lower levels. There is slight lumbar dextroscoliosis. There is slight retrolis thesis L4 on L5. There are thick atherosclerotic calcifications of the abdominal aorta and common il iac arteries. There is aneurysmal dilatation of the abdominal aorta at the L3-L4 level measuring 4.7 cm AP, increased in size versus prior CT scan which time it measured 4 cm AP. IMPRESSION: 1. Degenerative changes of the lumbar spine without evidence of fracture. 2. Extensive atherosclerotic vascular disease with aneurysmal dilatation of the distal abdominal aor ta. Recommend follow-up CT scan of the abdomen and pelvis for better characterization.
--- NOTE | 2025-03-11 18:49 | RADIOLOGY REPORT ---
CT Chest without intravenous contrast INDICATION: NICOTINE DEPENDENCE TECHNIQUE: Multidetector spiral CT of the chest was performed from the lung apices to the upper abdom en. Axial, coronal and sagittal multiplanar reformats were performed. Radiation dose : Chest: CTDI volume is 3 mGy. Dose-length product is 143 mGy*cm The dose indicators for CT are the volume computed tomography (CT) dose index (CTDIvol) and the dose length product (DLP), and are measured in units of mGy and mGy-cm, respectively. These indicators are not patient dose, but values generated from the CT scanner acquisition factors. The report includes radiation exposure data for exposures received during this examination. Comparison: None Findings: Lower neck: Normal thyroid. Lungs: Patchy ground-glass opacities in both lower lungs. Calcified granuloma in the right lung. Atel ectasis and scarring in the lung bases. Heart/Vascular Structures: Normal heart size. No pericardial effusion. Lymph Nodes: Calcified mediastinal and right hilar lymph nodes. Pleura: No pleural effusion or significant pneumothorax. Musculoskeletal: No acute osseous abnormality. Soft tissues: Normal. Upper abdomen: Calcified granuloma in the spleen. Possible calcified lymph node in the region of the gloria hepatis. IMPRESSION: 1. Evidence of prior granulomatous disease. Patchy ground-glass opacities in the bilateral lobes be infectious/inflammatory. Recommend follow-up chest CT in 3 months. Lung rads 3-probably benign. Radiation optimization: All CT scans at this facility use at least one of these dose optimization puja hniques: Automated exposure control mA and/or kV adjustment per patient size (includes targeted exams where dose is matched to clinical indication) or iterative reconstruction. HS:Y
== END 2025-03-11 23:59 | disposition home or self-care (01) ==
LOC: RAD 14:28
PROVIDERS: ATTEND Physician Assistant
DX: Z12.2 Encounter for screening for malignant neoplasm of respiratory organs (principal); I25.10 Atherosclerotic heart disease of native coronary artery without angina pectoris; M54.50 Low back pain, unspecified; F17.200 Nicotine dependence, unspecified, uncomplicated; I77.819 Aortic ectasia, unspecified site; F17.210 Nicotine dependence, cigarettes, uncomplicated; J84.10 Pulmonary fibrosis, unspecified; J98.11 Atelectasis; M41.86 Other forms of scoliosis, lumbar region; M47.816 Spondylosis without myelopathy or radiculopathy, lumbar region; I70.0 Atherosclerosis of aorta; I70.8 Atherosclerosis of other arteries
CPT/HCPCS: 71271; 72100

== ENCOUNTER 2025-04-01 16:38 | Outpatient (CLI) | payer MEDICARE, MEDICAID ==
--- NOTE | 2025-04-01 20:28 | RADIOLOGY REPORT ---
CLINICAL HISTORY: ABDOMINAL AORTIC ANEURYSM, WITHOUT RUPTURE, UNSPECIFIED TECHNIQUE: CT of the abdomen and pelvis was performed without intravenous contrast. This exam was per formed according to our departmental dose optimization program. Up-to-date CT equipment and radiation dose reduction techniques are utilized as appropriate. CTDI: 0.14+ 33.58 DLP: 1710.49 WID: COMPARISON: CT CT ABDOMEN PELVIS on DOS: 05/22/23 FINDINGS: Lower Thorax: Normal-sized heart with trace pericardial fluid. Partially imaged [id number] deejay nary artery calcifications. Linear and ground-glass bibasilar fibrotic change. Liver and Biliary system: Calcified Granulomas in the liver and calcified periportal lymph nodes, oth erwise unremarkable. Spleen: Calcified granulomas in the spleen, otherwise unremarkable. Adrenal Glands and Kidneys: Normal adrenal glands. There is no hydronephrosis or nephrolithiasis. Th ere are bilateral renal cortical calcifications. Pancreas and Retroperitoneum: Mild pancreatic atrophy. There is no retroperitoneal lymphadenopathy. Aorta and Major Vessels: Infrarenal abdominal aortic fusiform aneurysm measuring 4.1 cm transverse an d 4.1 cm AP on series 601, image 60 and series 602, image 80, compared to 3.9 cm transverse and 4.1 c m AP on prior examination. There is moderate calcified plaque in the aortoiliac vessels. Bowel, Mesentery and Peritoneal space: Normal caliber small and large bowel. Moderate distal colonic diverticulosis. Moderate retained stool in the colon. Normal appendix. No free air or fluid collectio n. Pelvis: Unremarkable. Abdominal wall and Osseous Structures: Small fat containing bilateral inguinal hernias, larger on the right. Small fat containing umbilical hernia. [id number] degenerative narrowing of the bilate ral hips. Straightening of the lumbar lordosis. Grade 1 retrolisthesis at L4-L5. Multilevel lumbar s pondylosis. No destructive osseous lesion. IMPRESSION: Fusiform aneurysm of the infrarenal abdominal aorta measuring 4.1 cm transverse and 4.1 cm AP. Moderate distal colonic diverticulosis.
== END 2025-04-01 23:59 | disposition home or self-care (01) ==
LOC: RAD 16:38
PROVIDERS: ATTEND Family Medicine
DX: I71.43 Infrarenal abdominal aortic aneurysm, without rupture (principal); D73.9 Disease of spleen, unspecified; K42.9 Umbilical hernia without obstruction or gangrene; K40.90 Unilateral inguinal hernia, without obstruction or gangrene, not specified as recurrent; M16.0 Bilateral primary osteoarthritis of hip
CPT/HCPCS: 74176

== ENCOUNTER 2025-06-22 02:06 | Emergency (ER) | payer MEDICARE, MEDICAID ==
[~2025-06-22] VITALS: Ht 177.8 cm; Wt 106.7 kg
[2025-06-22 02:37] VITALS: BP 114/65; PULSE 92; RESP 19; TEMP 98.2; O2SAT 97
[2025-06-22 03:48] LABS: LEUKOCYTE ESTERASE ,URINE NEGATIVE (Neg); NITRITES, URINE NEGATIVE (Neg); OCCULT BLOOD,URINE NEGATIVE (Neg); UA COLLECTION TYPE VOIDED
[2025-06-22 04:07] LABS: SQUAMOUS EPITHELIAL CELL,UR FEW /LPF (FEW)
== END 2025-06-22 04:25 | disposition left against medical advice (07) ==
LOC: ER 02:07
DX: R10.9 Unspecified abdominal pain (principal); M54.9 Dorsalgia, unspecified; Z53.21 Procedure and treatment not carried out due to patient leaving prior to being seen by health care provider; Z88.1 Allergy status to other antibiotic agents; Z88.5 Allergy status to narcotic agent; Z88.8 Allergy status to other drugs, medicaments and biological substances
CPT/HCPCS: 81001; 99281